=== PATIENT | female | born 1945 | race Caucasian/White ===

== ENCOUNTER 2018-06-22 11:43 | Outpatient (CLI) | payer MEDICARE | END 2018-06-22 11:44 | disposition home or self-care (01) | LOC: SCSMAMMO 11:43 → BICMAMMO 11:44 | PROVIDERS: ATTEND Obstetrics & Gynecology | DX: Z12.31 Encounter for screening mammogram for malignant neoplasm of breast (principal); Z98.82 Breast implant status | CPT/HCPCS: 77063; 77067 ==

== ENCOUNTER 2019-07-26 12:51 | Outpatient (CLI) | payer MEDICARE ==
--- NOTE | 2019-07-26 14:07 | RAD ---
TWO VIEWS CHEST: DATE: 07/26/2019. PROVIDED CLINICAL HISTORY: Dyspnea. FINDINGS: Comparison 07/01/2019. Cardiac and mediastinal silhouette is unchanged in appearance. Vascular calci fication involves the aortic arch. No focal consolidation, pleural fluid, or pneumothorax apparent. The lungs appear hyperinflated. Right convexity curvature of the thoracic spine is redemonstrated. IMPRESSION: No evidence for an acute cardiopulmonary process. POS: [facility]
== END 2019-07-26 12:52 | disposition home or self-care (01) ==
LOC: RAD 12:51
PROVIDERS: ATTEND Internal Medicine Pulmonary Disease
DX: R06.00 Dyspnea, unspecified (principal)
CPT/HCPCS: 71046

== ENCOUNTER 2023-02-23 12:44 | Inpatient (IN) | payer MEDICARE ==
[2023-02-23] MEDS ORDERED: Azithromycin 500 MG VIAL ONE (13:31)
[2023-02-23] MEDS ORDERED: cefTRIAXone (ROCEPHIN) 2 GM VIAL ONE (13:31)
[2023-02-23] MEDS ORDERED: Ondansetron PF 4 MG/2 ML Vial ONE (13:31)
[2023-02-23 13:45] LABS: #Basophils 0.1 thou/uL (0.0-0.2); #Eosinphils 0.1 thou/uL (0.0-0.7); #Monocytes 0.9 thou/uL (0.11-0.59); #Neutrophils 17.4 thou/uL (1.40-6.50); %Basophils 0.4 % (0.0-1.0); %Eosinophils 0.7 % (0.0-10.0); %Lymphocytes 5.9 % (21.0-51.0); %Monocytes 4.5 % (0.0-10.0); Hematocrit 33.3 % (36.0-47.0); Hemoglobin 11.4 g/dL (12.0-16.0); Mean Corpuscular HGB CONC 34.2 g/dL (32.0-36.0); Mean Corpuscular Hemoglobin 28.4 pg (27.0-31.0); Mean Platelet Volume 8.5 fL (7.4-10.4); Platelet Count 576 10x3/uL (130-400); RBC Distribution Width 13.6 % (11.5-14.5); Red Blood Cell (RBC) Count 4.01 mill/uL (4.20-5.40); White Blood Cell (WBC) Count 19.7 10x3/uL (4.8-10.8)
[2023-02-23 13:57] LABS: PTT 26.6 sec (22.9-36.1); Prothrombin Time 13.2 sec (12.0-14.7)
[2023-02-23 14:13] LABS: ALT (SGPT) Less than 7 U/L (8-55); AST (SGOT) 13 U/L (5-34); Albumin 4.9 g/dL (3.4-4.8); Alkaline Phosphatase 81 U/L (40-110); Anion Gap 17 mmol/L (10-20); BUN (Urea Nitrogen) 17 mg/dL (9.8-20.1); Bilirubin, Total 0.4 mg/dL (0.2-1.2); Calc. Creatinine Clearance 0 mL/min (70-130); Calcium 10.3 mg/dL (7.8-10.44); Carbon Dioxide 19 mmol/L (23-31); Chloride 97 mmol/L (98-107); Estimated GFR 42; Glucose 122 mg/dL (83-110); Protein, Total 7.9 g/dL (5.8-8.1); Sodium 129 mmol/L (136-145)
[2023-02-23 15:05] LABS: SARS-CoV-2 NAA Rapid Test Not Detected (NotDetected)
[2023-02-23 15:43] LABS: Bacteria/HPF None Seen HPF (None Seen); Bilirubin Negative (Negative); Blood, Urine Negative (Negative); CAUTI Indications for Culture Alt mental st,lethar; Clarity Clear (Clear); Glucose, Urine (Dipstick) Normal (Negative); Ketone, Urine Trace mg/dL (Negative); Leukocyte Negative Leu/uL (Negative); Nitrite Negative (Negative); Protein, Urine (Dipstick) Negative (Neg-Trace); RBC/HPF 0-3 HPF (0-3); Specific Gravity, Urine 1.009 (1.002-1.036); Squamous Epithelial 0-3 HPF (0-3); Urobilinogen Normal mg/dL (Less than 2); WBC/HPF None Seen HPF (0-3); pH, Urine 6.5 (5.0-9.0)
[2023-02-23 15:47] LABS: Urine Culture Reflex No No
[2023-02-23 16:31] LABS: Troponin I 0.045 ng/mL (< 0.028)
[2023-02-23] MEDS ORDERED: methylPREDNISolone Sod Succ/PF 125 MG/2 ML VIAL ONE (16:57)
[2023-02-23] MEDS ORDERED: Ipratropium/Albuterol 3 ML NEB ONE (17:00)
[2023-02-23] MEDS ORDERED: Acetaminophen 325 MG TAB PO PRN (18:46)
[2023-02-23] MEDS ORDERED: Ondansetron ODT 4 MG TAB PO PRN (18:46)
[2023-02-23] MEDS ORDERED: Bisacodyl 5 MG TAB PO PRN (18:46)
[2023-02-23] MEDS ORDERED: Scopolamine 1.5 mg/72 hour Patch TD SCH (19:00)
[2023-02-23] MEDS ORDERED: Sodium Chloride 0.9% 1,000 ML IV SCH (19:00)
[2023-02-23 19:50] VITALS: BMI 22.8
[2023-02-23] MEDS ORDERED: Mometasone 200 MCG/Formoterol 5 MCG 120 PUFF INHALER INH SCH (19:53)
[2023-02-23] MEDS ORDERED: Ipratropium/Albuterol 3 ML NEB NEB PRN (19:53)
[2023-02-23] MEDS ORDERED: Ipratropium/Albuterol 3 ML NEB NEB SCH ×2 (20:15→22:30)
[2023-02-23 20:40] LABS: Troponin I 0.063 ng/mL (< 0.028)
[2023-02-23 21:47] LABS: Legionella Urinary Ag Negative (Negative)
[2023-02-23 22:34] LABS: Troponin I 0.073 ng/mL (< 0.028)
[2023-02-23] MEDS: Ipratropium/Albuterol 3 ML NEB NEB SCH (22:41)
[2023-02-23 22:52] LABS: Strep pneumo Urine Ag NEGATIVE (NEGATIVE)
[2023-02-23] MEDS ORDERED: Ampicillin/Sulbactam 3 GM in Sodium Chloride 0.9% 100 ML IVPB SCH (23:59)
[2023-02-24] MEDS: Ipratropium/Albuterol 3 ML NEB NEB SCH ×6 (02:36→22:41)
[2023-02-24 04:52] LABS: #Monocytes 0.9 thou/uL (0.11-0.59); #Neutrophils 20.1 thou/uL (1.40-6.50); %Basophils 0.1 % (0.0-1.0); %Lymphocytes 2.8 % (21.0-51.0); %Neutrophils 92.3 % (42.0-75.0); Hematocrit 27.9 % (36.0-47.0); Hemoglobin 9.6 g/dL (12.0-16.0); Mean Corpuscular HGB CONC 34.4 g/dL (32.0-36.0); Mean Corpuscular Hemoglobin 28.5 pg (27.0-31.0); Mean Corpuscular Volume 82.8 fl (78.0-98.0); Mean Platelet Volume 8.6 fL (7.4-10.4); Platelet Count 484 10x3/uL (130-400); RBC Distribution Width 13.5 % (11.5-14.5); Red Blood Cell (RBC) Count 3.37 mill/uL (4.20-5.40); White Blood Cell (WBC) Count 21.8 10x3/uL (4.8-10.8)
[2023-02-24 05:26] LABS: ALT (SGPT) 7 U/L (8-55); AST (SGOT) 10 U/L (5-34); Alkaline Phosphatase 62 U/L (40-110); Anion Gap 15 mmol/L (10-20); BUN (Urea Nitrogen) 13 mg/dL (9.8-20.1); Bilirubin, Total 0.5 mg/dL (0.2-1.2); Calc. Creatinine Clearance 49 mL/min (70-130); Calcium 9.2 mg/dL (7.8-10.44); Carbon Dioxide 17 mmol/L (23-31); Chloride 101 mmol/L (98-107); Estimated GFR 61; Globulin 2.5 g/dL (2.4-3.5); Glucose 206 mg/dL (83-110); Potassium 3.4 mmol/L (3.5-5.1); Protein, Total 6.5 g/dL (5.8-8.1); Sodium 130 mmol/L (136-145)
[2023-02-24] MEDS: Mometasone 200 MCG/Formoterol 5 MCG 120 PUFF INHALER INH SCH ×2 (07:38→18:58)
[2023-02-24] MEDS: Pantoprazole 40 MG VIAL IVP SCH (09:30)
[2023-02-24] MEDS ORDERED: Ampicillin/Sulbactam 1.5 GM in Sodium Chloride 0.9% 100 ML IVPB SCH (12:00)
[2023-02-24] MEDS ORDERED: cefTRIAXone\\ROCEPHIN 2 GM in Sodium Chloride 0.9% 100 ML IVPB SCH (13:00)
[2023-02-24] MEDS ORDERED: Azithromycin 500 MG in Sodium Chloride 0.9% 250 ML 250 ML IVPB SCH (14:00)
[2023-02-24] MEDS ORDERED: Acetaminophen 325 MG TAB PO PRN (16:03)
[2023-02-24] MEDS ORDERED: Albuterol 200 PUFF (6.7GM INHALER) INH PRN (16:09)
[2023-02-24] MEDS ORDERED: Melatonin 3 MG TAB PO PRN (16:15)
[2023-02-24] MEDS ORDERED: Ferrous Sulfate 325 MG TAB PO SCH (17:00)
[2023-02-24] MEDS: Carbidopa/Levodopa 25-100 mg Tablet PO SCH (20:24)
[2023-02-24] MEDS: Amoxicillin/Potassium Clav 875 MG TAB PO SCH (20:25)
[2023-02-24] MEDS ORDERED: Montelukast Sodium 10 mg Tablet PO SCH (21:00)
[2023-02-24] MEDS ORDERED: Atorvastatin Calcium 10 MG TAB PO SCH (21:00)
[2023-02-24] MEDS ORDERED: Losartan 25 MG TAB PO SCH (21:00)
[2023-02-25] MEDS: Ipratropium/Albuterol 3 ML NEB NEB SCH ×4 (02:25→14:22)
[2023-02-25] MEDS: Mometasone 200 MCG/Formoterol 5 MCG 120 PUFF INHALER INH SCH (07:38)
[2023-02-25 07:40] LABS: #Monocytes 1.1 thou/uL (0.11-0.59); #Neutrophils 12.4 thou/uL (1.40-6.50); %Basophils 0.3 % (0.0-1.0); %Eosinophils 0.3 % (0.0-10.0); %Lymphocytes 4.5 % (21.0-51.0); %Monocytes 7.5 % (0.0-10.0); %Neutrophils 86.6 % (42.0-75.0); Hematocrit 27.1 % (36.0-47.0); Hemoglobin 9.3 g/dL (12.0-16.0); Mean Corpuscular HGB CONC 34.3 g/dL (32.0-36.0); Mean Corpuscular Hemoglobin 28.6 pg (27.0-31.0); Mean Corpuscular Volume 83.4 fl (78.0-98.0); Mean Platelet Volume 8.3 fL (7.4-10.4); Platelet Count 421 10x3/uL (130-400); RBC Distribution Width 13.6 % (11.5-14.5); Red Blood Cell (RBC) Count 3.25 mill/uL (4.20-5.40); White Blood Cell (WBC) Count 14.3 10x3/uL (4.8-10.8)
[2023-02-25 08:00] LABS: ALT (SGPT) Less than 7 U/L (8-55); AST (SGOT) 12 U/L (5-34); Alkaline Phosphatase 55 U/L (40-110); Anion Gap 13 mmol/L (10-20); BUN (Urea Nitrogen) 12 mg/dL (9.8-20.1); Bilirubin, Total 0.7 mg/dL (0.2-1.2); Calc. Creatinine Clearance 58 mL/min (70-130); Calcium 9.3 mg/dL (7.8-10.44); Carbon Dioxide 19 mmol/L (23-31); Chloride 102 mmol/L (98-107); Estimated GFR 73; Globulin 2.5 g/dL (2.4-3.5); Glucose 95 mg/dL (83-110); Potassium 3.8 mmol/L (3.5-5.1); Protein, Total 6.5 g/dL (5.8-8.1); Sodium 130 mmol/L (136-145)
[2023-02-25] MEDS ORDERED: Ascorbic Acid 500 mg Chewable Tablet PO SCH (09:00)
[2023-02-25] MEDS ORDERED: Non-Formulary Item 1 EACH (Fluticasone/Umeclidin/Vilanter [Trelegy Ellipta 100-62.5-25] 1 IH SCH (09:00)
[2023-02-25] MEDS ORDERED: Non-Formulary Item 1 EACH (Mecobalamin [B12 Active] 1,000 MCG Tab.Chew) PO SCH (09:00)
[2023-02-25] MEDS ORDERED: FLUoxetine HCl 20 MG CAP PO SCH (09:00)
[2023-02-25] MEDS ORDERED: Folic Acid 1 MG TAB PO SCH (09:00)
[2023-02-25] MEDS ORDERED: Hydrochlorothiazide 25 MG TAB PO SCH (09:00)
[2023-02-25] MEDS ORDERED: Megestrol Acetate 40 MG TAB PO SCH (09:00)
[2023-02-25] MEDS ORDERED: GLUCOSAMINE HCL 1500 MG PO SCH (09:00)
[2023-02-25] MEDS ORDERED: Ergocalciferol 1.25 MG(50,000 UNITS) CAP PO SCH (09:00)
[2023-02-25] MEDS ORDERED: NIFEdipine XL 30 MG ER.TAB PO SCH (09:00)
[2023-02-25] MEDS ORDERED: Cyanocobalamin (Vitamin B-12) 1,000 MCG TAB PO SCH (09:00)
[2023-02-25] MEDS: Amoxicillin/Potassium Clav 875 MG TAB PO SCH (09:27)
[2023-02-25] MEDS: Carbidopa/Levodopa 25-100 mg Tablet PO SCH ×2 (09:28→15:49)
[2023-02-25] MEDS: Pantoprazole 40 MG VIAL IVP SCH (09:32)
[2023-02-25 16:32] VITALS: BP 138/67; TEMP 98.2
[2023-02-26] MEDS ORDERED: Cholecalciferol 1,000 UNITS (25 MCG) TAB PO SCH (09:00)
== END 2023-02-25 19:25 | DRG 871 ==
LOC: ERS 12:44 → 2NO 17:18 → OBSVTOIN 02-24 16:08
PROVIDERS: ADMIT Family Medicine; ATTEND Family Medicine
DX: A41.9 Sepsis, unspecified organism (principal); I21.A1 Myocardial infarction type 2; J69.0 Pneumonitis due to inhalation of food and vomit; J18.9 Pneumonia, unspecified organism; J96.01 Acute respiratory failure with hypoxia; E87.1 Hypo-osmolality and hyponatremia; E87.20 Acidosis, unspecified; Z66 Do not resuscitate; N18.32 Chronic kidney disease, stage 3b; J44.9 Chronic obstructive pulmonary disease, unspecified; K21.9 Gastro-esophageal reflux disease without esophagitis; J30.9 Allergic rhinitis, unspecified; G47.00 Insomnia, unspecified; Z20.822 Contact with and (suspected) exposure to COVID-19; E78.5 Hyperlipidemia, unspecified; F32.A Depression, unspecified; R53.1 Weakness; D75.839 Thrombocytosis, unspecified; D63.1 Anemia in chronic kidney disease; F03.90 Unspecified dementia, unspecified severity, without behavioral disturbance, psychotic disturbance, mood disturbance, and anxiety; G20 Parkinson's disease; R53.81 Other malaise; Z79.899 Other long term (current) drug therapy; Z82.49 Family history of ischemic heart disease and other diseases of the circulatory system; Z87.891 Personal history of nicotine dependence
CPT/HCPCS: 36415; 71045; 74230; 80053; 81001; 83605; 84145; 84484; 85025; 85610; 85730; 87040; 87081; 87086; 87149; 87449; 87899; 93005; 94640; 94760; 96361; 96365; 96367; 96372; 96374; 96375; C9113; G0378; J0295; J0456; J0696; J1650; J2405; J2930; J3490; J7050; J7620; S0179

== ENCOUNTER 2023-10-11 09:18 | Inpatient (IN) | payer MEDICARE ==
[2023-10-11 09:53] LABS: #Basophils 0.06 10x3/uL (0.0-0.2); #Eosinphils Less than 0.03 10x3/uL (0.0-0.7); %Basophils 0.3 % (0.0-1.0); %Eosinophils 0.1 % (0.0-10.0); %Lymphocytes 2.9 % (21.0-51.0); %Neutrophils 89.2 % (42.0-75.0); Hematocrit 34.5 % (36.0-47.0); Hemoglobin 11.5 g/dL (12.0-16.0); Mean Corpuscular HGB CONC 33.3 g/dL (32.0-36.0); Mean Corpuscular Hemoglobin 27.4 pg (27.0-31.0); Mean Corpuscular Volume 82.1 fL (78.0-98.0); Mean Platelet Volume 8.6 fL (7.4-10.4); Platelet Count 427 10x3/uL (130-400); RBC Distribution Width 15.2 % (11.5-14.5)
[2023-10-11 10:18] LABS: Globulin 4.1 g/dL (2.4-3.5)
[2023-10-11] MEDS ORDERED: Magnesium 2 GM/50 ML BAG (IN WATER) ONE (10:18)
[2023-10-11] MEDS ORDERED: Ipratropium/Albuterol 3 ML NEB ONE (10:18)
[2023-10-11 10:23] LABS: ALT (SGPT) 6 U/L (8-55); AST (SGOT) 12 U/L (5-34); Albumin 3.4 g/dL (3.4-4.8); Alkaline Phosphatase 92 U/L (40-110); Anion Gap 18 mmol/L (10-20); BUN (Urea Nitrogen) 18 mg/dL (9.8-20.1); Bilirubin, Total 0.8 mg/dL (0.2-1.2); Calc. Creatinine Clearance 0 mL/min (70-130); Calcium 9.6 mg/dL (7.8-10.44); Carbon Dioxide 18 mmol/L (23-31); Chloride 101 mmol/L (98-107); Estimated GFR 48; Glucose 127 mg/dL (83-110); Lipase 28 U/L (8-78); Magnesium 1.4 mg/dL (1.6-2.6); Potassium 4.1 mmol/L (3.5-5.1); Protein, Total 7.5 g/dL (5.8-8.1); Sodium 133 mmol/L (136-145)
[2023-10-11] MEDS ORDERED: methylPREDNISolone Sod Succ/PF 125 MG/2 ML VIAL ONE (10:23)
[2023-10-11] MEDS ORDERED: LevoFLOXacin 750 mg/D5W 150 ml Premix Bag ONE (10:23)
[2023-10-11 10:27] LABS: Troponin I 0.022 ng/mL (< 0.028)
[2023-10-11 11:28] LABS: Influenza A by NAA Not Detected (NotDetected); Influenza B by NAA Not Detected (NotDetected); SARS-CoV-2 NAA Rapid Test Not Detected (NotDetected)
[2023-10-11] MEDS ORDERED: Acetaminophen 325 MG TAB PO PRN (13:46)
[2023-10-11] MEDS ORDERED: Ondansetron ODT 4 MG TAB PO PRN (13:46)
[2023-10-11] MEDS ORDERED: Albuterol 2.5 MG (3 mL) NEB NEB PRN (13:46)
[2023-10-11] MEDS ORDERED: Non-Formulary Item 1 EACH (Albuterol Sulfate [Proair Digihaler] 90 MCG Aer.Pw.Bas) IH PRN (13:51)
[2023-10-11] MEDS ORDERED: Ipratropium/Albuterol 3 ML NEB NEB PRN (14:00)
[2023-10-11 14:49] VITALS: BMI 20.5
[2023-10-11] MEDS: Ipratropium/Albuterol 3 ML NEB NEB SCH (14:59)
[2023-10-11] MEDS ORDERED: hydrALAZINE 20 MG/ML VIAL SLOW IVP PRN (16:45)
[2023-10-11] MEDS: Ferrous Sulfate 325 MG TAB PO SCH (16:47)
[2023-10-11] MEDS: Carbidopa/Levodopa 25-100 mg Tablet PO SCH ×2 (16:47)
[2023-10-11] MEDS ORDERED: Mometasone 100 MCG/Formoterol 5 MCG 120 PUFF INHALER INH SCH (18:30)
[2023-10-11] MEDS: Mometasone 200 MCG/Formoterol 5 MCG 120 PUFF INHALER INH SCH (18:47)
[2023-10-11] MEDS: Losartan 25 MG TAB PO SCH (21:25)
[2023-10-11] MEDS: Lactated Ringer's 1,000 ML IV SCH (21:47)
[2023-10-11] MEDS: Atorvastatin Calcium 10 MG TAB PO SCH (21:48)
[2023-10-12 06:59] LABS: #Basophils 0.03 10x3/uL (0.0-0.2); #Eosinphils Less than 0.03 10x3/uL (0.0-0.7); %Basophils 0.1 % (0.0-1.0); %Lymphocytes 3.5 % (21.0-51.0); %Monocytes 4.5 % (0.0-10.0); Hematocrit 29.2 % (36.0-47.0); Hemoglobin 9.6 g/dL (12.0-16.0); Mean Corpuscular HGB CONC 32.9 g/dL (32.0-36.0); Mean Corpuscular Hemoglobin 26.7 pg (27.0-31.0); Mean Corpuscular Volume 81.1 fL (78.0-98.0); Mean Platelet Volume 8.9 fL (7.4-10.4); Platelet Count 403 10x3/uL (130-400); RBC Distribution Width 15.2 % (11.5-14.5)
[2023-10-12 07:15] LABS: Anion Gap 14 mmol/L (10-20); BUN (Urea Nitrogen) 19 mg/dL (9.8-20.1); Calc. Creatinine Clearance 48 mL/min (70-130); Calcium 9.1 mg/dL (7.8-10.44); Carbon Dioxide 20 mmol/L (23-31); Chloride 102 mmol/L (98-107); Estimated GFR 64; Glucose 158 mg/dL (83-110); Magnesium 1.8 mg/dL (1.6-2.6); Potassium 3.6 mmol/L (3.5-5.1); Sodium 132 mmol/L (136-145)
[2023-10-12] MEDS: Cefepime 2 GM in Sodium Chloride 0.9% 100 ML IVPB SCH (07:57)
[2023-10-12] MEDS: Ascorbic Acid 500 mg Chewable Tablet PO SCH (08:38)
[2023-10-12] MEDS: Cholecalciferol 1,000 UNITS (25 MCG) TAB PO SCH (08:39)
[2023-10-12] MEDS: NIFEdipine XL 30 MG ER.TAB PO SCH (08:39)
[2023-10-12] MEDS: FLUoxetine HCl 20 MG CAP PO SCH (08:39)
[2023-10-12] MEDS: Hydrochlorothiazide 25 MG TAB PO SCH (08:40)
[2023-10-12] MEDS: Cyanocobalamin (Vitamin B-12) 1,000 MCG TAB PO SCH (08:40)
[2023-10-12] MEDS: Pantoprazole DR 40 MG TAB PO SCH (08:40)
[2023-10-12] MEDS: Enoxaparin 40 MG (0.4 mL) SYRINGE SC SCH (08:41)
[2023-10-12] MEDS ORDERED: Non-Formulary Item 1 EACH (Fluticasone/Umeclidin/Vilanter [Trelegy Ellipta 100-62.5-25] 1 IH SCH (09:00)
[2023-10-12 11:11] LABS: Bacteria/HPF 4+ HPF (None Seen); Bilirubin Negative (Negative); Blood, Urine 2+ (Negative); CAUTI Indications for Culture Fever or rigors; Clarity Extra Turbid (Clear); Glucose, Urine (Dipstick) Normal (Negative); Ketone, Urine Negative (Negative); Leukocyte 500 Leu/uL (Negative); Nitrite 1+ (Negative); Protein, Urine (Dipstick) 30 mg/dL (Neg-Trace); RBC/HPF 21-50 HPF (0-3); Specific Gravity, Urine 1.014 (1.002-1.036); Urobilinogen Normal mg/dL (Less than 2); WBC/HPF Greater than 50 HPF (0-3)
[2023-10-12 11:13] LABS: Urine Culture Reflex Yes Yes
[2023-10-12 11:28] LABS: Legionella Urinary Ag Negative (Negative); Strep pneumo Urine Ag NEGATIVE (NEGATIVE)
[2023-10-12] MEDS: Ipratropium/Albuterol 3 ML NEB NEB SCH (12:21)
[2023-10-12] MEDS: predniSONE 20 MG TAB PO SCH (13:54)
[2023-10-12] MEDS: Melatonin 3 MG TAB PO PRN (20:46)
[2023-10-13] MEDS: predniSONE 20 MG TAB PO SCH (09:04)
[2023-10-13 09:36] LABS: #Basophils 0.03 10x3/uL (0.0-0.2); #Eosinphils Less than 0.03 10x3/uL (0.0-0.7); %Basophils 0.1 % (0.0-1.0); %Lymphocytes 2.8 % (21.0-51.0); %Neutrophils 94.5 % (42.0-75.0); Hematocrit 29.5 % (36.0-47.0); Hemoglobin 9.5 g/dL (12.0-16.0); Mean Corpuscular HGB CONC 32.2 g/dL (32.0-36.0); Mean Corpuscular Hemoglobin 27.1 pg (27.0-31.0); Mean Corpuscular Volume 84.3 fL (78.0-98.0); Platelet Count 445 10x3/uL (130-400); RBC Distribution Width 15.5 % (11.5-14.5)
[2023-10-13 09:41] LABS: Anion Gap 15 mmol/L (10-20); BUN (Urea Nitrogen) 14 mg/dL (9.8-20.1); Calc. Creatinine Clearance 55 mL/min (70-130); Carbon Dioxide 21 mmol/L (23-31); Chloride 100 mmol/L (98-107); Estimated GFR 74; Glucose 123 mg/dL (83-110); Potassium 4.1 mmol/L (3.5-5.1); Sodium 132 mmol/L (136-145)
[2023-10-14 05:23] LABS: #Basophils Less than 0.03 10x3/uL (0.0-0.2); #Eosinphils Less than 0.03 10x3/uL (0.0-0.7); %Basophils 0.1 % (0.0-1.0); %Eosinophils 0.1 % (0.0-10.0); %Lymphocytes 11.9 % (21.0-51.0); %Monocytes 6.2 % (0.0-10.0); Hematocrit 30.4 % (36.0-47.0); Hemoglobin 9.9 g/dL (12.0-16.0); Mean Corpuscular HGB CONC 32.6 g/dL (32.0-36.0); Mean Corpuscular Hemoglobin 26.8 pg (27.0-31.0); Mean Corpuscular Volume 82.4 fL (78.0-98.0); Mean Platelet Volume 8.5 fL (7.4-10.4); Platelet Count 431 10x3/uL (130-400); RBC Distribution Width 15.3 % (11.5-14.5); Red Blood Cell (RBC) Count 3.69 mill/uL (4.20-5.40)
[2023-10-14 06:13] LABS: Anion Gap 16 mmol/L (10-20); BUN (Urea Nitrogen) 14 mg/dL (9.8-20.1); Calc. Creatinine Clearance 58 mL/min (70-130); Calcium 9.2 mg/dL (7.8-10.44); Carbon Dioxide 22 mmol/L (23-31); Chloride 99 mmol/L (98-107); Estimated GFR 79; Glucose 81 mg/dL (83-110); Potassium 3.7 mmol/L (3.5-5.1); Sodium 133 mmol/L (136-145)
[2023-10-14] MEDS: Polyethylene Glycol 3350 17 GM Packet PO SCH (09:17)
[2023-10-14] MEDS: CEFAZOLIN 2 GM in Sodium Chloride 0.9% 100 ML IVPB SCH (22:36)
[2023-10-15 05:10] LABS: #Basophils Less than 0.03 10x3/uL (0.0-0.2); %Basophils 0.1 % (0.0-1.0); %Eosinophils 0.2 % (0.0-10.0); %Lymphocytes 18.1 % (21.0-51.0); %Monocytes 6.9 % (0.0-10.0); Hematocrit 32.2 % (36.0-47.0); Hemoglobin 10.5 g/dL (12.0-16.0); Mean Corpuscular HGB CONC 32.6 g/dL (32.0-36.0); Mean Corpuscular Hemoglobin 26.6 pg (27.0-31.0); Mean Corpuscular Volume 81.7 fL (78.0-98.0); Mean Platelet Volume 8.5 fL (7.4-10.4); Platelet Count 480 10x3/uL (130-400); RBC Distribution Width 14.9 % (11.5-14.5); Red Blood Cell (RBC) Count 3.94 mill/uL (4.20-5.40)
[2023-10-15 05:47] LABS: Anion Gap 15 mmol/L (10-20); BUN (Urea Nitrogen) 18 mg/dL (9.8-20.1); Calc. Creatinine Clearance 52 mL/min (70-130); Calcium 9.1 mg/dL (7.8-10.44); Carbon Dioxide 24 mmol/L (23-31); Chloride 97 mmol/L (98-107); Estimated GFR 69; Glucose 77 mg/dL (83-110); Potassium 4.2 mmol/L (3.5-5.1); Sodium 132 mmol/L (136-145)
[2023-10-15 10:09] VITALS: BP 154/76; TEMP 98
[2023-10-15] MEDS ORDERED: Sodium Bicarbonate 2.5 MEQ/5 ML SDV ONE (11:54)
[2023-10-15] MEDS ORDERED: Lidocaine 1% PF 5 ML VIAL ONE (11:54)
== END 2023-10-15 16:43 | DRG 689 ==
LOC: ERS 09:18 → MSONC 13:27 → OBSVTOIN 10-12 07:44
PROVIDERS: ADMIT Family Medicine; ATTEND Family Medicine
DX: N39.0 Urinary tract infection, site not specified (principal); J96.01 Acute respiratory failure with hypoxia; J44.1 Chronic obstructive pulmonary disease with (acute) exacerbation; E87.1 Hypo-osmolality and hyponatremia; K21.9 Gastro-esophageal reflux disease without esophagitis; I12.9 Hypertensive chronic kidney disease with stage 1 through stage 4 chronic kidney disease, or unspecified chronic kidney disease; Z66 Do not resuscitate; F03.90 Unspecified dementia, unspecified severity, without behavioral disturbance, psychotic disturbance, mood disturbance, and anxiety; B96.20 Unspecified Escherichia coli [E. coli] as the cause of diseases classified elsewhere; G20.A1 Parkinson's disease without dyskinesia, without mention of fluctuations; N18.31 Chronic kidney disease, stage 3a; F32.A Depression, unspecified; E83.42 Hypomagnesemia; D75.839 Thrombocytosis, unspecified; G47.00 Insomnia, unspecified; Z79.899 Other long term (current) drug therapy; I25.2 Old myocardial infarction
CPT/HCPCS: 36415; 36569; 71045; 76937; 77001; 80048; 80053; 81001; 83605; 83690; 83735; 83880; 84145; 84484; 85025; 87040; 87077; 87086; 87149; 87186; 87449; 87899; 93005; 94640; 96365; 96366; 96375; C1751; G0378; J0692; J1650; J1956; J2930; J3475; J3490; J7120; J7512; J7620

== ENCOUNTER 2025-01-16 16:39 | Inpatient (IN) | payer MEDICARE ==
[~2025-01-16 16:39] MED LIST: Iopamidol-370 76% 500 ML MDV (1 ML CHARGE) ONE
[2025-01-16] MEDS ORDERED: Albuterol 2.5 MG (0.5 mL) NEB ONE (17:10)
[2025-01-16 17:20] LABS: Actual Bicarbonate (HCO3v) 17.0 mEq/L (22-28); Analyzer IN Cardio ER; Base Excess -6.3 mEq/L (-2.0 to +3.0); Calcium, Ionized (venous) 1.11 mmol/L (1.16-1.32); Chloride (VBG) 105 mmol/L (98-106); Hematocrit-VBG 38 % (36.0-47.0); Hemoglobin (Hb) 12.8 g/dL (11.7-16.1); Potassium (VBG) 4.51 mmol/L (3.70-5.30); Sodium 136 mmol/L (133-146)
[2025-01-16] MEDS ORDERED: Magnesium 2 GM/50 ML BAG (IN WATER) ONE (17:26)
[2025-01-16] MEDS ORDERED: cefTRIAXone (ROCEPHIN) 2 GM VIAL ONE (17:26)
[2025-01-16] MEDS ORDERED: Azithromycin 500 MG VIAL ONE (17:26)
[2025-01-16 17:40] LABS: #Basophils 0.10 10x3/uL (0.0-0.2); #Eosinophils 0.46 10x3/uL (0.0-0.7); #Monocytes 0.86 10x3/uL (0.11-0.59); #Neutrophils 13.32 10x3/uL (1.40-6.50); %Basophils 0.6 % (0.0-1.0); %Eosinophils 2.7 % (0.0-10.0); %Lymphocytes 14.6 % (21.0-51.0); %Monocytes 5.0 % (0.0-10.0); %Neutrophils 76.7 % (42.0-75.0); Hematocrit 35.3 % (36.0-47.0); Hemoglobin 11.4 g/dL (12.0-16.0); Mean Corpuscular Hemoglobin 27.5 pg (27.0-31.0); Mean Corpuscular Volume 85.3 fL (78.0-98.0); Platelet Count 422 10x3/uL (130-400); Red Blood Cell (RBC) Count 4.14 mill/uL (4.20-5.40); White Blood Cell (WBC) Count 17.34 10x3/uL (4.8-10.8)
[2025-01-16 17:55] LABS: ALT (SGPT) Less than 7 U/L (Less than 34); AST (SGOT) 15 U/L (11-34); Albumin 4.0 g/dL (3.1-4.5); Alkaline Phosphatase 59 U/L (40-110); Anion Gap 17 mmol/L (10-20); BUN (Urea Nitrogen) 14 mg/dL (9.8-20.1); Bilirubin, Total 0.5 mg/dL (0.3-1.2); Calc. Creatinine Clearance 0 mL/min (70-130); Calcium 8.6 mg/dL (7.8-10.44); Carbon Dioxide 19 mmol/L (23-31); Chloride 107 mmol/L (98-107); Globulin 3.0 g/dL (2.4-3.5); Glucose 136 mg/dL (83-110); Magnesium 2.0 mg/dL (1.6-2.6); Potassium 4.4 mmol/L (3.5-5.1); Sodium 139 mmol/L (136-145)
[2025-01-16 17:59] LABS: INR-International Normal Ratio 1.0; Prothrombin Time 13.7 sec (12.0-14.7)
[2025-01-16 18:00] LABS: PTT 26.2 sec (22.9-36.1); Troponin I 0.026 ng/mL (< 0.028)
[2025-01-16] MEDS ORDERED: diphenhydrAMINE 50 MG/ML VIAL ONE (18:07)
[2025-01-16] MEDS ORDERED: Melatonin 3 MG TAB PO PRN (23:58)
[2025-01-17] MEDS: Sodium Chloride 3% (15 ML) NEB NEB SCH
[2025-01-17 01:12] VITALS: BMI 22.1
[2025-01-17 04:58] LABS: #Basophils Less than 0.03 10x3/uL (0.0-0.2); #Eosinophils Less than 0.03 10x3/uL (0.0-0.7); #Monocytes 0.06 10x3/uL (0.11-0.59); #Neutrophils 13.03 10x3/uL (1.40-6.50); %Basophils 0.1 % (0.0-1.0); %Eosinophils 0.0 % (0.0-10.0); %Lymphocytes 4.4 % (21.0-51.0); %Monocytes 0.4 % (0.0-10.0); %Neutrophils 94.5 % (42.0-75.0); Hematocrit 35.8 % (36.0-47.0); Hemoglobin 11.1 g/dL (12.0-16.0); Mean Corpuscular Hemoglobin 27.5 pg (27.0-31.0); Mean Corpuscular Volume 88.6 fL (78.0-98.0); Platelet Count 437 10x3/uL (130-400); Red Blood Cell (RBC) Count 4.04 mill/uL (4.20-5.40); White Blood Cell (WBC) Count 13.79 10x3/uL (4.8-10.8)
[2025-01-17 05:33] LABS: ALT (SGPT) Less than 7 U/L (Less than 34); AST (SGOT) 15 U/L (11-34); Albumin 4.0 g/dL (3.1-4.5); Alkaline Phosphatase 59 U/L (40-110); Anion Gap 17 mmol/L (10-20); BUN (Urea Nitrogen) 13 mg/dL (9.8-20.1); Bilirubin, Total 0.4 mg/dL (0.3-1.2); Calc. Creatinine Clearance 49 mL/min (70-130); Calcium 8.9 mg/dL (7.8-10.44); Carbon Dioxide 18 mmol/L (23-31); Chloride 107 mmol/L (98-107); Globulin 3.0 g/dL (2.4-3.5); Glucose 181 mg/dL (83-110); Potassium 4.9 mmol/L (3.5-5.1); Sodium 137 mmol/L (136-145)
[2025-01-17] MEDS ORDERED: Acetaminophen 325 MG TAB PO PRN (13:01)
[2025-01-17] MEDS ORDERED: Melatonin 3 MG TAB PO PRN (14:44)
[2025-01-17] MEDS: Pantoprazole 40 MG DR.TAB PO SCH (16:30)
[2025-01-17] MEDS: Mometasone 100 MCG HFA INHALER (RT USE) INH SCH (18:35)
[2025-01-17] MEDS: Enoxaparin 40 MG (0.4 mL) SYRINGE SC SCH (20:14)
[2025-01-17] MEDS: Azithromycin 500 MG in Sodium Chloride 0.9% 250 ML 250 ML IVPB SCH (21:00)
[2025-01-17 21:11] LABS: Influenza A by NAA Not Detected (NotDetected); Influenza B by NAA Not Detected (NotDetected); SARS-CoV-2 NAA Rapid Test Not Detected (NotDetected)
[2025-01-18 05:05] LABS: #Basophils 0.03 10x3/uL (0.0-0.2); #Eosinophils Less than 0.03 10x3/uL (0.0-0.7); #Monocytes 0.22 10x3/uL (0.11-0.59); #Neutrophils 14.00 10x3/uL (1.40-6.50); %Basophils 0.2 % (0.0-1.0); %Eosinophils 0.0 % (0.0-10.0); %Lymphocytes 4.0 % (21.0-51.0); %Monocytes 1.5 % (0.0-10.0); %Neutrophils 93.8 % (42.0-75.0); Hematocrit 34.7 % (36.0-47.0); Hemoglobin 11.4 g/dL (12.0-16.0); Mean Corpuscular Hemoglobin 27.7 pg (27.0-31.0); Mean Corpuscular Volume 84.4 fL (78.0-98.0); Platelet Count 285 10x3/uL (130-400); Red Blood Cell (RBC) Count 4.11 mill/uL (4.20-5.40); White Blood Cell (WBC) Count 14.92 10x3/uL (4.8-10.8)
[2025-01-18 05:23] LABS: ALT (SGPT) Less than 7 U/L (Less than 34); AST (SGOT) 16 U/L (11-34); Albumin 3.7 g/dL (3.1-4.5); Alkaline Phosphatase 48 U/L (40-110); Anion Gap 16 mmol/L (10-20); BUN (Urea Nitrogen) 18 mg/dL (9.8-20.1); Bilirubin, Total 0.4 mg/dL (0.3-1.2); Calc. Creatinine Clearance 51 mL/min (70-130); Calcium 8.6 mg/dL (7.8-10.44); Carbon Dioxide 16 mmol/L (23-31); Chloride 109 mmol/L (98-107); Globulin 2.6 g/dL (2.4-3.5); Glucose 118 mg/dL (83-110); Potassium 4.9 mmol/L (3.5-5.1); Sodium 136 mmol/L (136-145)
[2025-01-18] MEDS: Ondansetron PF 4 MG/2 ML Vial IVP PRN (11:30)
[2025-01-18] MEDS: ALPRAZolam 0.25 MG TAB PO PRN (11:30)
[2025-01-18] MEDS: Losartan 25 MG TAB PO SCH (21:44)
[2025-01-19 06:44] LABS: #Basophils Less than 0.03 10x3/uL (0.0-0.2); #Eosinophils Less than 0.03 10x3/uL (0.0-0.7); #Monocytes 0.82 10x3/uL (0.11-0.59); #Neutrophils 9.08 10x3/uL (1.40-6.50); %Basophils 0.2 % (0.0-1.0); %Eosinophils 0.1 % (0.0-10.0); %Lymphocytes 14.8 % (21.0-51.0); %Monocytes 7.0 % (0.0-10.0); %Neutrophils 77.5 % (42.0-75.0); Hematocrit 31.2 % (36.0-47.0); Hemoglobin 9.9 g/dL (12.0-16.0); Mean Corpuscular Hemoglobin 28.0 pg (27.0-31.0); Mean Corpuscular Volume 88.4 fL (78.0-98.0); Platelet Count 353 10x3/uL (130-400); Red Blood Cell (RBC) Count 3.53 mill/uL (4.20-5.40); White Blood Cell (WBC) Count 11.71 10x3/uL (4.8-10.8)
[2025-01-19 07:03] LABS: ALT (SGPT) Less than 7 U/L (Less than 34); AST (SGOT) 9 U/L (11-34); Albumin 3.4 g/dL (3.1-4.5); Alkaline Phosphatase 46 U/L (40-110); Anion Gap 13 mmol/L (10-20); BUN (Urea Nitrogen) 22 mg/dL (9.8-20.1); Bilirubin, Total 0.5 mg/dL (0.3-1.2); Calc. Creatinine Clearance 46 mL/min (70-130); Calcium 8.3 mg/dL (7.8-10.44); Carbon Dioxide 21 mmol/L (23-31); Chloride 109 mmol/L (98-107); Globulin 2.3 g/dL (2.4-3.5); Glucose 88 mg/dL (83-110); Potassium 4.7 mmol/L (3.5-5.1); Sodium 138 mmol/L (136-145)
[2025-01-20 04:49] LABS: #Basophils Less than 0.03 10x3/uL (0.0-0.2); #Eosinophils Less than 0.03 10x3/uL (0.0-0.7); #Monocytes 1.14 10x3/uL (0.11-0.59); #Neutrophils 12.28 10x3/uL (1.40-6.50); %Basophils 0.1 % (0.0-1.0); %Eosinophils 0.0 % (0.0-10.0); %Lymphocytes 10.9 % (21.0-51.0); %Monocytes 7.5 % (0.0-10.0); %Neutrophils 80.8 % (42.0-75.0); Hematocrit 29.8 % (36.0-47.0); Hemoglobin 9.6 g/dL (12.0-16.0); Mean Corpuscular Hemoglobin 27.7 pg (27.0-31.0); Mean Corpuscular Volume 86.1 fL (78.0-98.0); Platelet Count 377 10x3/uL (130-400); Red Blood Cell (RBC) Count 3.46 mill/uL (4.20-5.40); White Blood Cell (WBC) Count 15.20 10x3/uL (4.8-10.8)
[2025-01-20 05:12] LABS: ALT (SGPT) Less than 7 U/L (Less than 34); AST (SGOT) 11 U/L (11-34); Albumin 3.3 g/dL (3.1-4.5); Alkaline Phosphatase 43 U/L (40-110); Anion Gap 10 mmol/L (10-20); BUN (Urea Nitrogen) 20 mg/dL (9.8-20.1); Bilirubin, Total 0.5 mg/dL (0.3-1.2); Calc. Creatinine Clearance 54 mL/min (70-130); Calcium 8.2 mg/dL (7.8-10.44); Carbon Dioxide 22 mmol/L (23-31); Chloride 106 mmol/L (98-107); Globulin 2.2 g/dL (2.4-3.5); Glucose 99 mg/dL (83-110); Potassium 4.2 mmol/L (3.5-5.1); Sodium 134 mmol/L (136-145)
[2025-01-20] MEDS: predniSONE 20 MG TAB PO SCH (10:42)
[2025-01-20 12:28] VITALS: BP 162/76; TEMP 98.3
== END 2025-01-20 15:04 | DRG 189 ==
LOC: ERS 16:39 → ERHOLD 22:05 → IMCU/EMU 01-17 00:28 → 2NO 01-18 16:13
PROVIDERS: ADMIT Family Medicine; ATTEND Family Medicine
PROC: 3E03329 Introduction of Other Anti-infective into Peripheral Vein, Percutaneous Approach (ICD-10-PCS; principal; 2025-01-17)
PROC: 5A09357 Assistance with Respiratory Ventilation, Less than 24 Consecutive Hours, Continuous Positive Airway Pressure (ICD-10-PCS; 2025-01-17)
PROC: 5A0935A Assistance with Respiratory Ventilation, Less than 24 Consecutive Hours, High Flow/Velocity Cannula (ICD-10-PCS; 2025-01-17)
DX: J96.21 Acute and chronic respiratory failure with hypoxia (principal); J44.1 Chronic obstructive pulmonary disease with (acute) exacerbation; I16.1 Hypertensive emergency; E87.20 Acidosis, unspecified; Z66 Do not resuscitate; Z51.5 Encounter for palliative care; I12.9 Hypertensive chronic kidney disease with stage 1 through stage 4 chronic kidney disease, or unspecified chronic kidney disease; N18.31 Chronic kidney disease, stage 3a; E27.8 Other specified disorders of adrenal gland; E78.00 Pure hypercholesterolemia, unspecified; G47.33 Obstructive sleep apnea (adult) (pediatric); J30.9 Allergic rhinitis, unspecified; K21.9 Gastro-esophageal reflux disease without esophagitis; F41.9 Anxiety disorder, unspecified; F32.A Depression, unspecified; G20.A1 Parkinson's disease without dyskinesia, without mention of fluctuations; Z91.81 History of falling; Z79.899 Other long term (current) drug therapy; G47.00 Insomnia, unspecified
CPT/HCPCS: 36415; 71045; 71275; 80053; 82306; 82805; 83605; 83735; 83880; 84145; 84484; 85025; 85610; 85730; 87040; 87149; 87633; 87636; 93005; 94640; 94660; 94760; 96365; 96374; 96375; 96376; J0456; J0696; J1200; J1650; J2250; J2270; J2405; J2919; J3475; J7050; J7512; J7611; J7620; Q9967